=== PATIENT | male | born 1940 | race Caucasian/White ===

== ENCOUNTER → 2019-08-04 22:59 | Outpatient (CLI) | payer MEDICARE, MEDICAID, SELFPAY ==
[2019-08-04 23:48] LABS: Microscopic, Urine URINE MICROSCOPIC (MICROSCOPIC)
[2019-08-05 00:01] LABS: Appearance,Urine CLOUDY (Clear); Bilirubin,Urine Negative (Negative); Blood, Urine TRACE-I (Negative); Color,Urine YELLOW (Yellow); Glucose,Urine (UA) Negative (Negative); Ketones,Urine Negative (Negative); Leukocyte Esterase,Urine 2+ (Negative); Nitrate,Urine POSITIVE (Negative); Protein,Urine TRACE (Negative); Specific Gravity, Urine 1.025 (1.005-1.030); Urobilinogen,Urine 0.2 EU/dl (0.2)
[2019-08-05 00:09] LABS: Bacteria,Urine 4+ /lpf; WBC,Urine TNTC #/hpf (0-3)
== END ==
PROVIDERS: PCP Emergency Medicine; Visit Provider Emergency Medicine
DX: R30.0 Dysuria (principal); N39.0 Urinary tract infection, site not specified
CPT/HCPCS: 81001; 87086; 87088; 87186

== ENCOUNTER → 2019-08-28 12:26 | Outpatient (CLI) | payer MEDICARE, MEDICAID, SELFPAY ==
--- NOTE | 2019-08-28 12:30 | FL_ITS ---
PROCEDURE: FL BARIUM SWALLOW MODIFIED CLINICAL INDICATION: ASPIRATION COMPARISON: No exams were available for comparison TECHNIQUE: Patient administered varying consistencies of barium contrast, while viewed in lateral position under real-time fluoroscopy with cine recording. FLUOROSCOPY TIME:3 minutes and 14 seconds The study was performed in conjunction with speech pathologist. Please see that report & recommendations. FINDINGS: Patient was given varying consistencies of barium. There was delay in initiation of the swallowing mechanism with mild stasis within the piriform sinuses. There was mild distended penetration but no corina tracheal aspiration.. IMPRESSION: Mild vestibular penetration with delay and stasis Please see speech pathologist report and recommendations. Dictated by: Ori Osborne MD 08/29/2019 10:51 Electronically signed by Ori Osborne MD in [place] 08/29/2019 10:51
--- NOTE | 2019-08-28 15:15 | HMH.SLMBS2 ---
Speech & Language Evaluation Speech/Language Mod Barium Swallow Start: 08/28/19 13:58 Freq: once Status: Complete Protocol: Document 08/28/19 13:58 CMAY (Rec: 08/28/19 14:52 CMAY [id number]) [facility] [place] Diet Dietary Recommendations Pureed,[place] Liquids Comment NTL via straw Treatment/Strategies Strategy/Precaution Recommend Sitting Upright (90 deg), Liquids from Straw Mod Barium Swallow Impressions Summary and Impressions Oral Phase Impression Moderate Impairment Oral Phase Summary Patient demonstrated extended mastication time and munching during mechanical soft trial. Patient also exhibited poor bolus formation and propulsion . No lingual residue was observed. Pharyngeal Phase Impression Moderate Impairment Pharyngeal Phase Summary Patient demonstarted weak tongue base strength evidenced by bolus spilling over tongue base seconds before swallow during mech soft trial. Patient also exhibited significant penetration into the laryngeal vestibule during mechanical soft trial. Patient also demonstrated a moderate amount of resiude in the valleculae following trials of NTL, HTL, pudding, and puree that did not clear with NTL washes, hard swallow, or verbal cues to cough on command. However, NTL via straw resulted in less residue than other trials. Patient rocked back and forth throughout study which impeded views at times and likely impacted swallow ability. Speech/Language MBS Assessment/Goals/Plan Assessment Date of Evaluation: 08/28/19 Evaluation Type Initial Certification Assessment/Problems Dysphagia Does Patient Qualify for Service No Qualify/Failure Comment Patient will return to [facility] where ST will follow-up and determine appropriateness of therapy. Recommendations PHYSICIAN CERTIFICATION: The specified therapy services are required, authorized, and reviewed every 30 days. Diet Maikol
== END ==
PROVIDERS: PCP Emergency Medicine; Visit Provider Emergency Medicine
DX: R13.10 Dysphagia, unspecified (principal); R09.89 Other specified symptoms and signs involving the circulatory and respiratory systems; R05 Cough
CPT/HCPCS: 70371; 92611

== ENCOUNTER → 2019-12-01 11:25 | Outpatient (CLI) | payer MEDICARE, MEDICAID, SELFPAY ==
[2019-12-01 11:35] LABS: Microscopic, Urine URINE MICROSCOPIC (MICROSCOPIC)
[2019-12-01 12:05] LABS: Appearance,Urine CLEAR (Clear); Bilirubin,Urine Negative (Negative); Blood, Urine 1+ (Negative); Color,Urine YELLOW (Yellow); Glucose,Urine (UA) Negative (Negative); Ketones,Urine TRACE (Negative); Leukocyte Esterase,Urine 3+ (Negative); Nitrate,Urine POSITIVE (Negative); Protein,Urine TRACE (Negative); Specific Gravity, Urine 1.025 (1.005-1.030); Urobilinogen,Urine 0.2 EU/dl (0.2)
[2019-12-01 12:36] LABS: Bacteria,Urine Trace /lpf; Squamous Epithelial Cell,Urine Occasional #/hpf (0-5); WBC,Urine TNTC #/hpf (0-3)
== END ==
PROVIDERS: Visit Provider Emergency Medicine
DX: R30.0 Dysuria (principal); R10.9 Unspecified abdominal pain
CPT/HCPCS: 81001; 87086; 87088; 87186

== ENCOUNTER → 2019-12-24 13:29 | Outpatient (CLI) | payer MEDICARE, MEDICAID, SELFPAY ==
[2019-12-24 13:39] LABS: Microscopic, Urine URINE MICROSCOPIC (MICROSCOPIC)
[2019-12-24 14:14] LABS: Appearance,Urine CLEAR (Clear); Bilirubin,Urine Negative (Negative); Blood, Urine Negative (Negative); Color,Urine YELLOW (Yellow); Glucose,Urine (UA) Negative (Negative); Ketones,Urine Negative (Negative); Leukocyte Esterase,Urine Negative (Negative); Nitrate,Urine Negative (Negative); Protein,Urine Negative (Negative); Specific Gravity, Urine 1.025 (1.005-1.030); Urobilinogen,Urine 0.2 EU/dl (0.2)
[2019-12-24 14:31] LABS: Bacteria,Urine Trace /lpf; Calcium Oxalate Crystals,Urine Trace /lpf; Squamous Epithelial Cell,Urine Occasional #/hpf (0-5)
== END ==
PROVIDERS: Visit Provider Emergency Medicine
DX: Z87.440 Personal history of urinary (tract) infections (principal); R82.90 Unspecified abnormal findings in urine
CPT/HCPCS: 81001; 87086

== ENCOUNTER → 2020-01-23 08:46 | Outpatient (CLI) | payer MEDICARE, MEDICAID, SELFPAY ==
--- NOTE | 2020-01-23 08:52 | XR_ITS ---
PROCEDURE: XR WRIST LT MIN 3V CLINICAL INDICATION: left wrist fracture Pain and swelling COMPARISON: No exams were available for comparison FINDINGS: Nondisplaced transverse fracture involves the distal radius at the metaphyseal diaphyseal junction. There is minimal impaction. There may be a faint linear component extending into the articular surface centrally. CT may confirm if clinically warranted. Distal ulna has an unremarkable appearance. IMPRESSION: Nondisplaced transverse distal radial fracture with minimal impaction and questionable longitudinal component extending to the articular surface Dictated by: Ori Osborne MD 01/23/2020 12:37 Electronically signed by Ori Osborne MD in [place] 01/23/2020 12:37
== END ==
PROVIDERS: PCP Emergency Medicine; Visit Provider Orthopaedic Surgery
DX: S62.102A Fracture of unspecified carpal bone, left wrist, initial encounter for closed fracture (principal)
CPT/HCPCS: 73110

== ENCOUNTER → 2020-01-30 13:53 | Outpatient (CLI) | payer MEDICARE, MEDICAID, SELFPAY ==
--- NOTE | 2020-01-30 14:00 | XR_ITS ---
PROCEDURE: XR WRIST LT MIN 3V CLINICAL INDICATION: left wrist fracture Follow-up fracture COMPARISON: XR WRIST LT MIN 3V from 01/23/2020 FINDINGS: A cast is in place. Mildly impacted distal radial fracture once again noted with mild dorsal displacement and angulation of the distal fracture fragment IMPRESSION: Good alignment status post cast placement for impacted fracture of the distal radius Dictated by: Ori Osborne MD 01/30/2020 14:30 Electronically signed by Ori Osborne MD in [place] 01/30/2020 14:30
== END ==
PROVIDERS: PCP Emergency Medicine; Visit Provider Orthopaedic Surgery
DX: S52.502A Unspecified fracture of the lower end of left radius, initial encounter for closed fracture (principal)
CPT/HCPCS: 73110

== ENCOUNTER → 2020-02-27 13:24 | Outpatient (CLI) | payer MEDICARE, MEDICAID, SELFPAY ==
--- NOTE | 2020-02-27 13:26 | XR_ITS ---
PROCEDURE: XR WRIST LT MIN 3V CLINICAL INDICATION: left wrist fracture, after cast removal Follow-up fracture/cast removal COMPARISON: XR WRIST LT MIN 3V from 01/23/2020 XR WRIST LT MIN 3V from 01/30/2020 FINDINGS: There is a healing comminuted fracture of the distal radius with mild dorsal angulation/impaction of the distal fracture fragment without displacement. There is developing callus formation. IMPRESSION: Healing distal radial fracture as described above Dictated by: Ori Osborne MD 02/27/2020 13:53 Electronically signed by Ori Osborne MD in [place] 02/27/2020 13:53
== END ==
PROVIDERS: PCP Emergency Medicine; Visit Provider Orthopaedic Surgery
DX: S52.502A Unspecified fracture of the lower end of left radius, initial encounter for closed fracture (principal)
CPT/HCPCS: 73110

== ENCOUNTER → 2020-09-09 02:20 | Outpatient (CLI) | payer MEDICARE, MEDICAID, SELFPAY ==
[2020-09-10 11:04] LABS: Covid-19 Nasal PCR Sendout P&C POSITIVE
== END ==
PROVIDERS: Visit Provider Emergency Medicine
DX: U07.1 COVID-19 (principal)
CPT/HCPCS: U0004

== ENCOUNTER → 2021-09-02 10:32 | Outpatient (CLI) | payer MEDICARE, MEDICAID, SELFPAY ==
--- NOTE | 2021-09-02 10:45 | XR_ITS ---
FINAL REPORT CLINICAL HISTORY: BLOATING,DIARRHEA FINDINGS: Chest: A single view of the chest demonstrates mild bibasilar atelectasis or scarring. Abdomen: Flat and upright views of the abdomen demonstrate a nonobstructive gas pattern. There is a moderate amount of retained stool. There is no free air. IMPRESSION: Mild bibasilar atelectasis or scarring. Moderate amount of retained stool. Reviewed, Interpreted and Dictated by Ganga Javed III, MD Transcribed by Aidee Lopez Authenticated by Ganga Javed III, MD on 09/02/2021 12:44:40 PM [facility]
--- NOTE | 2021-09-02 10:45 | FL_ITS ---
FINAL REPORT CLINICAL HISTORY: . bloating coughing while eating fluoro time 2.54 FINDINGS: MODIFIED BARIUM SWALLOW History: Dysphagia. FINDINGS: Fluoroscopy was provided for the speech pathologist to evaluate the swallowing mechanism. The patient was given several different consistencies of barium while the swallow was visualized fluoroscopically. The report of the speech pathologist should be consulted prior to making dietary decisions. FLUOROSCOPY TIME:2 minutes 54 seconds. 15 cine runs were obtained. IMPRESSION: Modified barium swallow under fluoroscopic guidance. Please see the report of the speech pathologist for more detail. Films reviewed , interpreted and dictated by Dr. Dr. Javed. Transcribed by Blane Johnston PA-C. Reviewed, Interpreted and Dictated by Ganga Javed III, MD Transcribed by ASHLEIGH Larry Authenticated by Ganga Javed III, MD on 09/04/2021 08:27:[address] [facility]
--- NOTE | 2021-09-02 12:00 | HMH.SLMBS2 ---
Speech & Language Evaluation Speech/Language Mod Barium Swallow Start: 09/02/21 11:20 Freq: once Status: Complete Protocol: Document 09/02/21 11:20 MIHAELA (Rec: 09/02/21 11:59 MIHAELA [id number]) General Information General Current Food Consistancy Pureed,Pudding Liquids Dentition Edentulous Oxygen Status Room Air Facial Symmetry Patient Baseline Patient Orientation Person,Place Ability to Follow Directions Fair Communication Ability Moderate Impairment MBS Recommendations Diet Dietary Recommendations Ground Meats,Pureed,Honey Liquids Treatment/Strategies Strategy/Precaution Recommend Sitting Upright (90 deg),Small Bites and Sips Mod Barium Swallow Impressions Summary and Impressions Oral Phase Impression Moderate Impairment Pharyngeal Phase Impression Severe Impairment Speech/Language MBS Assessment/Goals/Plan Assessment Date of Evaluation: 09/02/21 Evaluation Type Initial Certification Assessment/Problems History of dysphagia, currently on pudding thick liquids and puree diet. Does Patient Qualify for Service No Qualify/Failure Comment [facility]. Recommendations PHYSICIAN CERTIFICATION: The specified therapy services are required, authorized, and reviewed every 30 days. Diet Recommendations pureed/ground diet. Liquid Type Recommendations Honey Consistency SL Swallow Guidelines Assist w/all meals,High aspiration risk,Crush meds as allowed*,Eat at slow rate Crush Meds Crush all meds Dysphagia Swallow Precautions/Strategies Sitting Upright (90 deg),Small Bites and Sips Place Food on Either side of Mouth Plan Pt/Guardian verbally ack understanding Yes of dx/prognosis/goals Pt/Guardian verbally ack understanding Yes of/consent to tx prog G -code Required No Mod Barium Swallow Setup Exam Setup Radiologist Ganga Javed Level of Consciousness Awake,Alert,Disoriented Position (degrees) 90 Mod Barium Swallow-Lat View Textures Lateral View Food Presentation Thin Liquid via Cup,[place] Liquid via Spoon,[place] Liquid via Cup,Honey Liquid via Spoon,Honey Liquid via Cup, Pureed Food- Thin,Mech. Soft Food- Regular,Pudding Oral Phase Labial Closure No Impairment (WFL) Bolus Formation Pooling L/R Moderate Impairment Bolus Forma
== END ==
PROVIDERS: PCP Emergency Medicine; Visit Provider Emergency Medicine
DX: R14.0 Abdominal distension (gaseous) (principal); R41.9 Unspecified symptoms and signs involving cognitive functions and awareness
CPT/HCPCS: 70371; 74021; 92611

== ENCOUNTER → 2022-03-15 11:33 | Outpatient (CLI) | payer MEDICARE, MEDICAID, SELFPAY ==
--- NOTE | 2022-03-15 11:38 | XR_ITS ---
FINAL REPORT CLINICAL HISTORY: vomiting blood/cough x2 weeks COMPARISON: 09/02/2021 FINDINGS: PA and lateral views of the chest were obtained. The cardiac silhouette is within normal limits. Right paratracheal fullness is unchanged and likely vascular. There is evidence of granulomatous disease with underlying emphysema. The lungs are otherwise clear. There is no pleural effusion or pneumothorax. No acute osseous abnormality is identified. IMPRESSION: No radiographic evidence of acute cardiac or pulmonary disease. Reviewed, Interpreted and Dictated by Ariela Fairchild MD Transcribed by Walker Feliz Authenticated and [facility]
== END ==
PROVIDERS: PCP Emergency Medicine; Visit Provider Otolaryngology
DX: K92.0 Hematemesis (principal); R05.3 Chronic cough
CPT/HCPCS: 71046

== ENCOUNTER → 2022-03-22 09:04 | Outpatient (CLI) | payer MEDICARE, MEDICAID, SELFPAY | PROVIDERS: PCP Emergency Medicine; Visit Provider Otolaryngology | DX: K92.0 Hematemesis (principal); R05.3 Chronic cough | CPT/HCPCS: 94010 ==

== ENCOUNTER 2022-05-02 21:09 | Emergency (ER) | payer MEDICARE, MEDICAID, SELFPAY ==
[2022-05-02 21:17] VITALS: BP 123/56; PULSE 80; RESP 16; TEMP 37.3; O2SAT 97; BMI 23.7
--- NOTE | 2022-05-02 21:52 | HMH.EDSKAF ---
Discharge Plan Disposition Patient Disposition: Home, Self-Care Chief Complaint: Skin/Abscess/Foreign Body Prescriptions Prescriptions: No Action risperidone 0.5 mg tablet 0.5 mg PO DAILY divalproex 500 mg tablet extended release 24 hr 500 mg PO DAILY acetaminophen 500 mg capsule 500 mg capsule 500 mg PO Q4H PRN albuterol sulfate 90 mcg/actuation aerosol powdr breath activated 2 inh INHALATION Q6H PRN guaifenesin [Robafen] 100 mg/5 mL liquid 200 mg PO Q4H PRN aspirin [Adult Aspirin Regimen] 81 mg tablet,delayed release (DR/EC) 81 mg PO DAILY Ingrezza 80 mg capsule 80 mg PO DAILY Qty: 30 2RF lorazepam 0.5 mg tablet 0.5 mg PO QHS Qty: 30 5RF Referrals Follow up/Referrals: Chago Rodriguez MD [Primary Care Provider] - See instructions Clinical Impressions Clinical Impression: Lesion of mouth Instructions Patient Instructions: DI for Skin Lesion Removal Discharge ED Provider: Chago Rodriguez Skin/Abscess/FB HPI General Chief complaint: Skin/Abscess/Foreign Body Stated complaint: Bleeding from mouth Time Seen by Provider: 05/02/22 21:52 Mode of Arrival: EMS Source of Information: Patient, EMS and Medical Record Limitations: No Limitations Description of Symptoms (Recalled from ER Triage Doc. by RN): Per ems and custodial report (report given from fredy Saldana), pt was eating dinner tonight when he began to spit out blood. Per EMS, they were told that there was a spot on his mouth that looks like caviar by custodial staff. On patients inner right cheek, there is an area that is shaped like a small grape that is dangling. Pt is not currenlty bleeding but there is old dried blood on his villavicencio. Pt has no teeth and states I gum my food but I didn't gum my jaw . History of Present Illness HPI narrative: bleeding from rt oral lesion - uncertain how long lesion present - no other c/o MD complaint: lesion Onset (ago): unknown Tetanus up to date: unsure Location: face (oral rt inner jaw ) Severity: moderate Associated symptoms: denies other symptoms Treatments prior to arrival: none Related Data Home Medications Medication Instructions Recorded Confirmed acetaminophen 500 mg capsule 500 mg PO Q4H PRN 10/22/19 04/19/22 albuterol sulfate 90 mcg/actuation 2 inh inhalation Q6H PRN 10/22/19 04/19/22 breath activated powder inhaler aspirin 81 mg tablet,delayed 81 mg PO DAILY 10/22/19 04/19/22 release (Adult Aspirin Regimen) guaifenesin 100 mg/5 mL oral 200 mg PO Q4H PRN 10/22/19 04/19/22 liquid (Robafen) divalproex 500 mg tablet,extended 500 mg PO DAILY 03/15/22 04/19/22 release 24 hr risperidone 0.5 mg tablet 0.5 mg PO DAILY 03/15/22 04/19/22 Previous Rx's Medication Instructions Recorded valbenazine 80 mg capsule 80 mg PO DAILY #30 caps 10/22/19 (Ingrezza) lorazepam 0.5 mg tablet 0.5 mg PO QHS #30 tabs 04/09/22 Allergies Allergy/AdvReac Type Severity Reaction Status Date / Time No Known Allergies Allergy Verified 04/19/22 14:44 [facility] Medical History Chronic schizoaffective disorder COPD (chronic obstructive pulmonary disease) Metabolic encephalopathy Social History (Updated 04/19/22 @ 15:17 by Jewle Elder MD) Smoking Status: Never smoker alcohol intake: never current occupational status: retired Travel in the last 8 weeks: None housing: custodial ROS Obtained: Yes All systems reviewed & no additional complaints except as documented Constitutional Constitutional: Denies fever(s) Eyes Eyes: Denies loss of vision ENT Ears, Nose, Mouth, and Throat: Reports as per HPI, Denies odynophagia and Reports other (bleeding ) Cardiovascular Cardiovascular: Denies dyspnea Respiratory Respiratory: Denies dyspnea Gastrointestinal Gastrointestingal: Denies odynophagia Genitourinary Male Genitourinary: Denies hematuria Musculoskeletal Musculoskeletal: Denies arthra
[2022-05-02 22:12] VITALS: BP 120/52; PULSE 81; RESP 16; TEMP 36.6; O2SAT 99
== END 2022-05-02 22:31 | disposition home or self-care (01) ==
PROVIDERS: Emergency Provider Emergency Medicine; PCP Emergency Medicine
DX: K13.79 Other lesions of oral mucosa
CPT/HCPCS: 40810; 99283

== ENCOUNTER → 2022-05-03 14:05 | Outpatient (CLI) | payer MEDICARE, MEDICAID, SELFPAY ==
--- NOTE | 2022-05-03 14:05 | CT_ITS ---
FINAL REPORT TECHNIQUE: Axial images were obtained from the lung apex to the mid abdomen by computed tomography. Coronal reformatted images were obtained. This study was performed with techniques to keep radiation doses as low as reasonably achievable, (ALARA). Individualized dose reduction techniques using automated exposure control or adjustment of mA and/or kV according to the patient''s size were employed. CLINICAL HISTORY: Hemoptysis FINDINGS: CHEST CT WITHOUT CONTRAST There is no axillary adenopathy. There is no hilar or mediastinal adenopathy. Heart size is normal. There are severe coronary artery calcifications. There is no pericardial or pleural effusion. Limited images of the upper abdomen are unremarkable. On the lung window images there is mild pulmonary scarring. There is a 2 mm right upper lobe nodule seen on image 39 and a 5 mm lateral right middle lobe nodule seen on image 61. IMPRESSION: No acute process. Right pulmonary nodules as described. Reviewed, Interpreted and Dictated by Ganga Javed III, MD Transcribed by Aidee Lopez Authenticated and [facility]
== END ==
PROVIDERS: PCP Emergency Medicine; Visit Provider Internal Medicine Pulmonary Disease
DX: J44.9 Chronic obstructive pulmonary disease, unspecified (principal); R04.2 Hemoptysis
CPT/HCPCS: 71250

== ENCOUNTER 2022-07-02 19:26 | Emergency (ER) | payer MEDICARE, MEDICAID, SELFPAY ==
[2022-07-02 19:26] VITALS: BP 105/45; PULSE 59; RESP 18; TEMP 36.7; O2SAT 99; BMI 21.2
--- NOTE | 2022-07-02 19:49 | CT_ITS ---
PROCEDURE INFORMATION: Exam: CT Cervical Spine Without Contrast Exam date and time: 07/02/2022 9:10 PM Age: 82 years old Clinical indication: Injury or trauma; Fall TECHNIQUE: Imaging protocol: Computed tomography of the cervical spine without contrast. Radiation optimization: All CT scans at this facility use at least one of these dose optimization techniques: automated exposure control; mA and/or kV adjustment per patient size (includes targeted exams where dose is matched to clinical indication); or iterative reconstruction. COMPARISON: CT HEAD/BRAIN WO CON 07/02/2022 9:08 PM FINDINGS: Bones/joints: No evidence of acute fracture or malalignment. Multilevel degenerative changes resulting in varying degrees of spinal canal stenosis and neuroforaminal narrowing. No evidence of acute osseous abnormality in T1 and T2, which were not included on the concurrent thoracic spine CT. Lungs: No acute abnormality or suspicious mass lesion in the visualized lung apices. Soft tissues: Coarse soft tissue calcifications along the nuchal ligament, compatible with chronic sequelae of prior trauma. IMPRESSION: 1. No evidence of acute osseous abnormality in the cervical spine. 2. No evidence of acute osseous abnormality in T1 and T2, which were not included on the concurrent thoracic spine CT. 3. Multi-level degenerative changes.
--- NOTE | 2022-07-02 19:49 | CT_ITS ---
PROCEDURE INFORMATION: Exam: CT Lumbar Spine Without Contrast Exam date and time: 07/02/2022 9:15 PM Age: 82 years old Clinical indication: Injury or trauma; Fall TECHNIQUE: Imaging protocol: Computed tomography of the lumbar spine without contrast. Radiation optimization: All CT scans at this facility use at least one of these dose optimization techniques: automated exposure control; mA and/or kV adjustment per patient size (includes targeted exams where dose is matched to clinical indication); or iterative reconstruction. COMPARISON: CT THORACIC SPINE WO CON 07/02/2022 9:12 PM FINDINGS: Bones/joints: Standard lumbosacral anatomy with 5 [id number] vertebral bodies. No evidence of acute fracture or malalignment. Multilevel degenerative changes resulting in varying degrees of spinal canal stenosis and neuroforaminal narrowing. Soft tissues: Unremarkable. IMPRESSION: 1. No evidence of acute osseous abnormality in the lumbar spine. 2. Multi-level degenerative changes.
--- NOTE | 2022-07-02 19:49 | XR_ITS ---
PROCEDURE INFORMATION: Exam: XR Chest Exam date and time: 07/02/2022 8:23 PM Age: 82 years old Clinical indication: Injury or trauma; Fall; Blunt trauma (contusions or hematomas); Additional info: Fall hit back of head TECHNIQUE: Imaging protocol: Radiologic exam of the chest. Views: 4 or more views. COMPARISON: CT CHEST WO CON 05/03/2022 2:11 PM FINDINGS: Lungs: Pulmonary vascular congestion without overt pulmonary edema. No acute airspace consolidation. Pleural spaces: No large pleural effusion. No pneumothorax. Heart/Mediastinum: Cardiomediastinal silhouette is unchanged. Bones/joints: No evidence of acute osseous abnormality. IMPRESSION: 1. No acute findings. 2. Pulmonary vascular congestion without overt pulmonary edema.
--- NOTE | 2022-07-02 19:49 | XR_ITS ---
PROCEDURE INFORMATION: Exam: XR Pelvis Exam date and time: 07/02/2022 8:24 PM Age: 82 years old Clinical indication: Injury or trauma; Fall; Blunt trauma (contusions or hematomas); Bilateral; Pelvic region TECHNIQUE: Imaging protocol: Radiologic exam of the pelvis. Views: 1 or 2 view. COMPARISON: CR XR ACUTE ABDOMEN SERIES 09/02/2021 10:51 AM FINDINGS: Bones/joints: No acute fracture or malalignment. Pubic symphysis and bilateral sacroiliac joints are congruent. Soft tissues: Unremarkable. IMPRESSION: No evidence of acute osseous abnormality in the pelvis.
--- NOTE | 2022-07-02 19:49 | CT_ITS ---
PROCEDURE INFORMATION: Exam: CT Head Without Contrast Exam date and time: 07/02/2022 9:08 PM Age: 82 years old Clinical indication: Injury or trauma; Fall; Additional info: Fall hit back of head TECHNIQUE: Imaging protocol: Computed tomography of the head without contrast. Radiation optimization: All CT scans at this facility use at least one of these dose optimization techniques: automated exposure control; mA and/or kV adjustment per patient size (includes targeted exams where dose is matched to clinical indication); or iterative reconstruction. COMPARISON: RF FL BARIUM SWALLOW MODIFIED 09/02/2021 11:11 AM FINDINGS: Brain: There is no evidence of acute intracranial hemorrhage, extra-axial collection or locoregional mass effect. There are scattered hypodensities in the periventricular and subcortical white matter. The appearance is nonspecific, but most likely represents chronic small vessel disease in a person of this age Cerebral ventricles: The ventricles, sulci and cisterns are normal in size and configuration for patient's age. No hydrocephalus or midline structure shift Pituitary gland and sella: Sellar/parasellar structures, craniocervical junction and orbits are unremarkable Paranasal sinuses: See Mastoid air cells finding. Mastoid air cells: Scattered mucosal thickening in the left maxillary sinus Mastoid air cells. Visualized mastoid air cells are well aerated. Bones/joints: No calvarial fracture Soft tissues: Unremarkable. IMPRESSION: No acute intracranial abnormality. No calvarial fracture.
--- NOTE | 2022-07-02 19:49 | CT_ITS ---
PROCEDURE INFORMATION: Exam: CT Thoracic Spine Without Contrast Exam date and time: 07/02/2022 9:12 PM Age: 82 years old Clinical indication: Injury or trauma; Fall TECHNIQUE: Imaging protocol: Computed tomography of the thoracic spine without contrast. Radiation optimization: All CT scans at this facility use at least one of these dose optimization techniques: automated exposure control; mA and/or kV adjustment per patient size (includes targeted exams where dose is matched to clinical indication); or iterative reconstruction. COMPARISON: CT CERVICAL SPINE WO CON 07/02/2022 9:10 PM FINDINGS: Limitations: T1 and T2 vertebral bodies are not included in the images provided. Bones/joints: No acute fracture or malalignment. Multi-level bridging disc osteophytes in the spine, compatible with diffuse idiopathic skeletal hyperostosis (DISH). Soft tissues: Unremarkable. IMPRESSION: 1. No evidence of acute osseous abnormality in the thoracic spine, noting the T1 and T2 in included in the images provided. 2. Diffuse idiopathic skeletal hyperostosis (DISH).
[2022-07-02 20:01] VITALS: BP 98/49; PULSE 58; O2SAT 99
--- NOTE | 2022-07-02 21:08 | HMH.EDFALL ---
Discharge Plan Disposition Patient Disposition: er [facility] Chief Complaint: Fall Prescriptions Prescriptions: No Action bisacodyl 10 mg suppository 10 mg AL DAILY PRN risperidone 0.5 mg tablet 0.5 mg PO DAILY divalproex 500 mg tablet extended release 24 hr 500 mg PO DAILY acetaminophen 500 mg capsule 500 mg capsule 500 mg PO Q4H PRN albuterol sulfate 90 mcg/actuation aerosol powdr breath activated 2 inh INHALATION Q6H PRN guaifenesin [Robafen] 100 mg/5 mL liquid 200 mg PO Q4H PRN aspirin [Adult Aspirin Regimen] 81 mg tablet,delayed release (DR/EC) 81 mg PO DAILY Ingrezza 80 mg capsule 80 mg PO DAILY Qty: 30 2RF lorazepam 0.5 mg tablet 0.5 mg PO QHS Qty: 30 5RF Referrals Follow up/Referrals: Provider,Referral, MD [Primary Care Provider] - See instructions Clinical Impressions Clinical Impression: Fall, Acute cervical sprain, Sprain thoracic region, Lumbar contusion, Contusion of head, DISH (diffuse idiopathic skeletal hyperostosis) Instructions Patient Instructions: How to Prevent Falls Discharge ED Provider: Chago Rodriguez Fall HPI General Chief Complaint: Fall Stated Complaint: Fall Time Seen by Provider: 07/02/22 20:10 Mode of Arrival: EMS Source of Information: Patient, EMS and Medical Record Limitations: No Limitations Description of Symptoms (Recalled from ER Triage Doc. by RN): pt fell while having a smoke break. the pt stated that he attempted to sit down but there was no bench and he fell back and hit his head on a pole and fell on his back and bottom on the concrete. pt stated there is pain in the head on the back left no abrassion noted History of Present Illness HPI Narrative: fell at formerly [facility] w/o loc complaint: fall Onset (ago): hour(s) Fall from: standing Fall witnessed: yes, by bystander Place fall occurred: [facility] Loss of consciousness: none Prolonged down time: no Context: tripped/slipped Location of injury: head, neck and back Severity: moderate Associated symptoms (after fall): denies Related Data Home Medications Medication Instructions Recorded Confirmed acetaminophen 500 mg capsule 500 mg PO Q4H PRN 10/22/19 05/03/22 albuterol sulfate 90 mcg/actuation 2 inh inhalation Q6H PRN 10/22/19 05/03/22 breath activated powder inhaler aspirin 81 mg tablet,delayed 81 mg PO DAILY 10/22/19 05/03/22 release (Adult Aspirin Regimen) guaifenesin 100 mg/5 mL oral 200 mg PO Q4H PRN 10/22/19 05/03/22 liquid (Robafen) divalproex 500 mg tablet,extended 500 mg PO DAILY 03/15/22 05/03/22 release 24 hr risperidone 0.5 mg tablet 0.5 mg PO DAILY 03/15/22 05/03/22 bisacodyl 10 mg rectal suppository 10 mg AL DAILY PRN 05/03/22 05/03/22 Previous Rx's Medication Instructions Recorded valbenazine 80 mg capsule 80 mg PO DAILY #30 caps 10/22/19 (Ingrezza) lorazepam 0.5 mg tablet 0.5 mg PO QHS #30 tabs 04/09/22 Allergies Allergy/AdvReac Type Severity Reaction Status Date / Time No Known Allergies Allergy Verified 05/03/22 14:35 PFSH PFSH Medical History Chronic schizoaffective disorder COPD (chronic obstructive pulmonary disease) Hemoptysis, unspecified Lung nodule Metabolic encephalopathy Pulmonary emphysema Smoking greater than 30 pack years Social History (Updated 04/19/22 @ 15:17 by Jewel Elder MD) Smoking Status: Current every day smoker alcohol intake: never current occupational status: retired Travel in the last 8 weeks: None housing: [facility] ROS Obtained: Yes All systems reviewed & no additional complaints except as documented Physical Exam General General appearance: alert Head Head exam: normocephalic Eye Eye exam: Present PERRL and EOMI ENT ENT exam: Present mucous membranes moist Neck Neck exam: Present trachea midline Respiratory Respiratory exam: Present normal lung sounds bilaterally; Absent respiratory distress Cardiovascular Cardiovascular exam: Presen
--- NOTE | 2022-07-02 22:05 | PC.NURSE ---
Pt changed and repositioned in bed. Urinal and warm blanket provided. No other needs voiced at this time.
[2022-07-02 22:07] VITALS: BP 135/63; PULSE 54; O2SAT 100
--- NOTE | 2022-07-02 22:41 | PC.NURSE ---
Pt waiting for ambulance transport back to [facility]. No ambulance available at this time.
[2022-07-02 23:49] VITALS: BP 128/61; PULSE 55; RESP 16; TEMP 36.7; O2SAT 97
== END 2022-07-03 00:06 ==
PROVIDERS: Emergency Provider Emergency Medicine
DX: M48.10 Ankylosing hyperostosis [Forestier], site unspecified (principal); S00.93XA Contusion of unspecified part of head, initial encounter; S30.0XXA Contusion of lower back and pelvis, initial encounter; S23.9XXA Sprain of unspecified parts of thorax, initial encounter; S13.9XXA Sprain of joints and ligaments of unspecified parts of neck, initial encounter; W18.39XA Other fall on same level, initial encounter; Z79.82 Long term (current) use of aspirin; Z79.899 Other long term (current) drug therapy; J44.9 Chronic obstructive pulmonary disease, unspecified; F25.9 Schizoaffective disorder, unspecified; Z72.0 Tobacco use
CPT/HCPCS: 70450; 71045; 72125; 72128; 72131; 72170; 99285

== ENCOUNTER → 2022-11-02 13:01 | Outpatient (CLI) | payer MEDICARE, MEDICAID, SELFPAY ==
--- NOTE | 2022-11-02 13:04 | CT_ITS ---
FINAL REPORT TECHNIQUE: Axial images were obtained from the lung apex to the mid abdomen by computed tomography. Coronal reformatted images were obtained. This study was performed with techniques to keep radiation doses as low as reasonably achievable, (ALARA). Individualized dose reduction techniques using automated exposure control or adjustment of mA and/or kV according to the patient''s size were employed. CLINICAL HISTORY: RLL 6mm nodule COMPARISON: May 03, 2022 FINDINGS: There is no axillary adenopathy. There is no hilar or mediastinal adenopathy. Heart size is normal. There is severe left coronary artery calcification. There is no pericardial or pleural effusion. Limited images of the upper abdomen demonstrates a small nonobstructing left renal stone.. There is mild atelectasis or scarring in the lung bases. There is a 5 mm lateral right middle lobe nodule which is stable. There are several other small pulmonary nodules are stable. IMPRESSION: Stable pulmonary nodules. If indicated, additional follow-up in 12 months. Reviewed, Interpreted and Dictated by Ganga Javed III, MD Transcribed by Aidee Lopez Authenticated and [facility]
== END ==
PROVIDERS: PCP Emergency Medicine; Visit Provider Internal Medicine Pulmonary Disease
DX: R91.8 Other nonspecific abnormal finding of lung field (principal)
CPT/HCPCS: 71250

== ENCOUNTER → 2023-05-30 11:05 | Outpatient (CLI) | payer MEDICARE, MEDICAID, SELFPAY ==
--- NOTE | 2023-05-30 11:10 | FL_ITS ---
FINAL REPORT CLINICAL HISTORY: DYSPHAGIA ft 1:32 99.96 FINDINGS: MODIFIED BARIUM SWALLOW History: Dysphagia. FINDINGS: Fluoroscopy was provided for the speech pathologist to evaluate the swallowing mechanism. The patient was given several different consistencies of barium while the swallow was visualized fluoroscopically. The report of the speech pathologist should be consulted prior to making dietary decisions. Fluoro time: 1 minute 32 seconds DAP: 99.96 uGy.m2 Radiation exposure in Reference air Kerma: 6 mGy. IMPRESSION: Modified barium swallow under fluoroscopic guidance. Please see the report of the speech pathologist for more detail. Films reviewed , interpreted and dictated by Dr. Javed. Transcribed by Blane Johnston PA-C. Reviewed, Interpreted and Dictated by Ganga Javed III, MD Transcribed by ASHLEIGH Larry Authenticated and [facility]
--- NOTE | 2023-05-30 13:31 | HMH.SLMBS2 ---
Speech & Language Evaluation Speech/Language Mod Barium Swallow Start: 05/30/23 12:57 Freq: once Status: Complete Protocol: Document 05/30/23 12:57 CYRIL (Rec: 05/30/23 13:31 [id number] General Information General Current Food Consistancy Pureed,Thin Liquids Dentition Edentulous Oxygen Status Room Air Patient Orientation Person Ability to Follow Directions Fair Communication Ability Mild Impairment MBS Recommendations Diet Dietary Recommendations Pureed,Thin Liquids Comment thins with adaptive drinking aid Treatment/Strategies Strategy/Precaution Recommend Sitting Upright (90 deg), Double Swallow,No Straw,Small Bites and Sips,Alternate Liquids/Solids Mod Barium Swallow Impressions Summary and Impressions Oral Phase Impression Mild Impairment Oral Phase Summary Mr. Calvo exhibits a mild impairment in the oral prepatory and oral transit phases of the swallow 2' demonstration of prolonged mastication with scattered, rapid swallows noted across consistencies administered. There was also prolonged a/p transit noted with puree, pudding, and especially mechanical soft with barium pudding. He demonstrated fatigue and tongue pumping when attempting to manipulate mechanical soft solid and had difficulty with transition during the oral transit phase of the swallow with mechanical soft solids. Pharyngeal Phase Impression Moderate Impairment Pharyngeal Phase Summary Moderate pharyngeal impairment observed. Mr. Calvo exhibited no aspiration throughout the study. With pudding and mechanical soft consistencies administered corina residue was noted in the vallecular space that was able to be cleared to trace amounts of vallecular residue when prompted to complete a secondary swallow; remaining
== END ==
PROVIDERS: PCP Emergency Medicine; Visit Provider Emergency Medicine
DX: R13.10 Dysphagia, unspecified (principal)
CPT/HCPCS: 70371; 92611

== ENCOUNTER 2023-11-03 08:42 | Outpatient (CLI) | payer MEDICARE, MEDICAID, SELFPAY ==
--- NOTE | 2023-11-03 09:30 | PC.NURSE ---
PT UNABLE TO DO PFT AT THIS TIME. UNABLE TO DO A LOOP AFTER MULTIPLE ATTEMPTS
== END 2023-11-03 23:59 ==
LOC: RT 08:43
PROVIDERS: PCP Internal Medicine; Visit Provider Internal Medicine Pulmonary Disease
DX: R06.02 Shortness of breath (principal)

== ENCOUNTER 2024-02-02 11:14 | Outpatient (CLI) | payer MEDICARE, MEDICAID, SELFPAY ==
--- NOTE | 2024-02-02 11:24 | ECG_ITS ---
APPROVED REPORT Exam: Resting ECG HR:66 bpm ECG Measurements Heart Rate 66 AXES TN 189 P 58 QRSd 83 QRS 47 QT 364 T 44 QTc 378 Conclusion SINUS RHYTHM NORMAL ECG UNCONFIRMED REPORT Electronically signed by : Oseas Lennon MD 02/03/2024 16:07:29
== END 2024-02-02 23:59 | disposition home or self-care (01) ==
LOC: RT 11:15
PROVIDERS: PCP Family Medicine; Visit Provider Family Medicine
DX: I49.9 Cardiac arrhythmia, unspecified (principal)
CPT/HCPCS: 93005

== ENCOUNTER 2024-08-03 13:29 | Outpatient (CLI) | payer MEDICARE, MEDICAID, SELFPAY ==
--- NOTE | 2024-08-03 13:30 | CT_ITS ---
FINAL REPORT TECHNIQUE: Axial imaging of the chest was obtained without contrast. Reformatted images were also obtained and reviewed. This study was performed with techniques to keep radiation doses as low as reasonably achievable (ALARA). Individualized dose reduction techniques using automated exposure control or adjustment of mA and/or kV according to the patient's size were employed. CLINICAL HISTORY: pulm nodules FINDINGS: There are severe left coronary artery calcifications. There is no axillary adenopathy. There is no hilar or mediastinal mass or adenopathy. Heart size is normal. There is no pericardial or pleural effusion. Limited images of the upper abdomen demonstrates a less than 3 mm nonobstructing right renal stone. There is bronchial wall thickening and mild pulmonary scarring. There is a stable, 5 mm lateral right middle lobe nodule seen on series 2 image 58. IMPRESSION: Severe left coronary artery calcifications. Stable 5 mm nodule in the right middle lobe. Reviewed, Interpreted and Dictated by Ganga Javed III, MD Transcribed by Grace Boyer Authenticated and [facility]
== END 2024-08-03 23:59 | disposition home or self-care (01) ==
LOC: RAD 13:30
PROVIDERS: PCP Family Medicine; Visit Provider Nurse Practitioner Family
DX: R91.1 Solitary pulmonary nodule (principal); J43.0 Unilateral pulmonary emphysema [MacLeod's syndrome]; J44.9 Chronic obstructive pulmonary disease, unspecified; F17.210 Nicotine dependence, cigarettes, uncomplicated
CPT/HCPCS: 71250

== ENCOUNTER 2025-04-24 08:19 | Outpatient (CLI) | payer MEDICARE, MEDICAID, SELFPAY ==
--- OUTSIDE RECORDS SUMMARY | 2025-04-24 08:35 | XMS_ITS | Clinical Summary ---
Author Organization [facility] Address [address] [place] [address] Phone Care Team Providers Care Hoop Bender Tank Name Role Phone Unavailable Primary Care Provider Unavailabl e Allergies No known active allergies Medications * This document contains information received from the source organization and may not represent a complete record from that organization. AUSTEDO 12 mg Oral Tablet TAKE 1 TABLET BY MOUTH TWICE A DAY 60 Tablet 5 05/12/2021 Active LORazepam (ATIVAN) 0.5 mg Oral Tablet Take 1 tab at HS for anxiety/sle ep 30 Tablet 3 05/25/2024 Active Active Problems No known active problems Social History Tobacco Use Types Packs/Day Years Used Date Smoking Tobacco: Every Day Smokeless Tobacco: Never Tobacco Cessation:Ready to Q uit: No; Counseling Given: No Alcohol Use Standard Drinks/Week Comments Not Currently 0 (1 standard drink = 0.6 oz pur e alcohol) Sex and Gender Information Value Date Recorded Sex Assigned at Not on file Legal Sex Male 12:56 PM EDT Gender Identity Not on file Sexual Orientation Not on file Obstetrics History Plan of Treatment Health Maintenance Due Date Last Done Comments Wellness Exam Medicare 1943 DTaP/TDaP/Td (1 - Tdap) 1957 Pneumococcal Vaccine 50+ (1 of 2 - PCV) 1957 Zoster (1 of 2) 1988 RSV or 60+ (1 - 1-d ose 75+ series) 2013 COVID-19 Vaccine ( - 2023-2 5 season) 2025 Influenza Vaccine (#1) 2025 Hepatitis B Vaccine Aged Out No longe r eligible based on patient's age to complete this topic Meningococcal B Vaccine Aged Out No l onger eligible based on patient's age to complete this topic Insurance MEDICARE PART B MEDICAID [place]
[2025-04-24 10:52] LABS: Hematocrit 42.4 % (42.0-52.0); Hemoglobin 14.1 g/dL (14.1-18.0); Immature Granulocytes % 0.2 %; Mean Corpuscular HGB Conc 33.3 g/dL (31.8-35.4); Mean Corpuscular Hemoglobin 32.1 pg (27.0-31.2); Mean Corpuscular Volume 96.6 fl (80-94); Nucleated Red Blood Cells % 0 %; Platelet Count 217 K/mm3 (142-424); Red Blood Count 4.39 M/mm3 (4.60-6.20); Red Cell Distribution Width-SD 44.5 fL; White Blood Count 8.1 K/mm3 (4.8-10.8)
[2025-04-24 11:05] LABS: Alanine Aminotransferase 11 U/L (12-78); Albumin Level 3.4 g/dl (3.5-5.0); Albumin/Globulin Ratio 1.3 (1.1-1.8); Alkaline Phosphatase 77 U/L (38-126); Anion Gap 11.5 mEq/L (5-15); Aspartate Amino Transferase 18 U/L (17-59); Bilirubin,Total 0.5 mg/dl (0.2-1.3); Blood Urea Nitrogen 8 mg/dl (9-20); Calcium 9.9 mg/dl (8.4-10.2); Carbon Dioxide 27 mmol/L (22.0-30.0); Chloride 103 mmol/L (98-107); Cholesterol 166 mg/dl (140-200); Creatinine,Serum 0.90 mg/dl (0.66-1.25); Estimated Glomerular Filt Rate 80 ml/min (>60); GFR (African American) 97 ML/MIN (>60); Globulin 2.6 g/dL (1.3-3.2); Glucose 65 mg/dl (74-100); HDL Cholesterol 34 mg/dl (40-60); Potassium 4.5 mmoL/L (3.5-5.1); Sodium 137 mmol/L (136-145); Total Protein,Serum 6.0 g/dl (6.3-8.2); Triglycerides 73 mg/dl (30-150)
[2025-04-24 11:21] LABS: Free T4 (Free Thyroxine) 1.22 ng/dl (0.78-2.19)
[2025-04-24 11:36] LABS: Thyroid Stimulating Hormone 2.00 uIU/mL (0.465-4.68)
[2025-04-24 13:54] LABS: Hemoglobin A1C 5.4 % (4.0-6.0)
[2025-04-24 17:24] LABS: Hepatitis C Ab Qual. W/ RFX NEGATIVE (Negative)
== END 2025-04-24 23:59 | disposition home or self-care (01) ==
PROVIDERS: PCP Nurse Practitioner Family; Visit Provider Nurse Practitioner Family
DX: K21.9 Gastro-esophageal reflux disease without esophagitis (principal); Z11.4 Encounter for screening for human immunodeficiency virus [HIV]; Z12.5 Encounter for screening for malignant neoplasm of prostate
CPT/HCPCS: 80053; 80061; 83036; 84439; 84443; 85025; 86803; 87389; G0103

== ENCOUNTER 2025-08-18 19:06 | Emergency (ER) | payer MEDICARE, MEDICAID, SELFPAY ==
[2025-08-18 19:10] VITALS: BP 146/71; PULSE 76; RESP 20; TEMP 36.9; O2SAT 98; BMI 21.4
--- OUTSIDE RECORDS SUMMARY | 2025-08-18 19:20 | XMS_ITS ---
Author Organization Unknown ENCOUNTERS Encounter Performer Location Date Diagnosis Diagnosis Status Emergency [facility] [place] [address] [place] [address] [id number] Pre Admit [place] [address] [place] [address] [id number] Emergency [place] [address] [place] [address] [id number] X[facility]NF Emergency [place] [address] [place] [address] [id number] ANTHONY *Note: Encounters from your own facility or health system may be excluded. Allergies, Adverse Reactions, Alerts Allergen Type Severity Identification Date Medications Name Date Quantity Days Supplied GPI Number
--- OUTSIDE RECORDS SUMMARY | 2025-08-18 19:20 | XMS_ITS | Clinical Summary ---
Author Organization [facility] Address [address] [place] [address] Phone Care Team Providers Care Beater Head Name Role Phone Unavailable Primary Care Provider [...] on file Sexual Orientation Not on file Plan of Treatment Health Maintenance Due Date Last Done Comments Wellness Exam Medicare 1943 DTaP/TDaP/Td (1 - Tdap) 1957 Pneumococcal Vaccine 50+ (1 of 2 - PCV) 1957 Zoster (1 of 2) 1988 RSV or 60+ (1 - 1-d ose 75+ series) 2013 COVID-19 Vaccine ( - 2024-2 6 season) 2025 Influenza Vaccine (#1) 2025 Hepatitis B Vaccine Aged Out No longe r eligible based on patient's age to complete this topic Meningococcal B Vaccine Aged Out No l onger eligible based on patient's age to complete this topic Insurance MEDICARE PART B MEDICAID [place]
[2025-08-18 19:30] VITALS: BP 128/62; PULSE 70; O2SAT 98
--- NOTE | 2025-08-18 19:41 | XR_ITS ---
PROCEDURE INFORMATION: Exam: XR Left Ankle Exam date and time: 08/18/2025 7:47 PM Age: 85 years old Clinical indication: Injury or trauma; Fall; Blunt trauma; Ankle; Left; Additional info: Ankle pain after fall TECHNIQUE: Imaging protocol: Radiologic exam of the left ankle. Views: 3 or more views. COMPARISON: No relevant prior studies available. FINDINGS: Bones/joints: Calcaneus enthesophytes. Soft tissues: Moderate soft tissue swelling around the ankle. IMPRESSION: Moderate soft tissue swelling around the ankle. No acute fracture or dislocation.
[2025-08-18 20:00] VITALS: BP 131/67; PULSE 71; O2SAT 98
[2025-08-18 20:30] VITALS: BP 143/74; PULSE 70; O2SAT 97
--- NOTE | 2025-08-18 21:09 | ED_ITS ---
<Statement entered by Lopez Goldsmith MD - 08/18/25 21:59> Lopez Goldsmith MD: I was consulted by the STAN, and we discussed the complexity of the problems being addressed. I approve the treatment and management plan for this patient's care in the emergency department, thus performing a substantive portion of the medical decision making. Discharge Plan Disposition Patient Disposition: Home, Self-Care Condition: Good Prescriptions Prescriptions: No Action bisacodyl 10 mg suppository 10 mg DE DAILY PRN omeprazole 20 mg capsule,delayed release(DR/EC) 20 mg PO DAILY Austedo 12 mg tablet 12 mg PO BID albuterol sulfate 90 mcg/actuation HFA aerosol inhaler 2 puff inhalation Q6H PRN acetaminophen 500 mg capsule 500 mg PO Q4H PRN guaifenesin [Robafen] 100 mg/5 mL liquid 200 mg PO Q4H PRN aspirin [Adult Aspirin Regimen] 81 mg tablet,delayed release (DR/EC) 81 mg PO DAILY magnesium citrate Solution 300 ml PO WEEKLY PRN (Reason: constipation) sennosides-docusate sodium [Senexon-S] 8.6-50 mg tablet 1 tab-cap PO AM sennosides-docusate sodium [Senexon-S] 8.6-50 mg tablet 2 tab-cap PO HS risperidone 0.5 mg tablet 0.5 mg PO QHS lorazepam 0.5 mg tablet 0.5 mg PO QHS Qty: 30 5RF Referrals Follow up/Referrals: Oseas Baca MD [Primary Care Provider, Family Practice] - See instructions Activity Restrictions/Add. Instructions Additional Instructions/Restrictions: You were seen for left ankle pain. Return here if symptoms worsen. Your xray did not show a fracture. Clinical Impressions Clinical Impression: Ankle sprain Instructions Patient Instructions: Ankle Sprain Print Language Print Language: Danish Discharge ED Provider: Lopez Goldsmith General Adult HPI General Chief complaint: Fall Stated complaint: fall Time Seen by Provider: 08/18/25 19:21 History of Present Illness HPI narrative: Patient presents with left ankle pain. He reports that he had a fall. 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 He reports that he did bump his chin on his walker. The fall was apparently witnessed by nursing staff at the facility he lives in. complaint: Ankle pain Onset (ago): minute(s) Location: left and lower extremity Radiation: non-radiation Severity: moderate Consistency: constant Relieving factors: none Exacerbating factors: none Associated symptoms: denies other symptoms Treatments prior to arrival: none Related Data Home Medications ?Medication ?Instructions ?Recorded ?Confirmed acetaminophen 500 mg capsule 500 mg PO Q4H PRN 0 08/06/25 aspirin 81 mg tablet,delayed 81 mg PO DAILY 10/22/19 1 10/07/24 release (Adult Aspirin Regimen) guaifenesin 100 mg/5 mL oral 200 mg PO Q4H PRN 0 08/06/25 liquid (Robafen) bisacodyl 10 mg rectal suppository 10 mg DE DAILY PRN 05/03/22 08/06/25 magnesium citrate 300 ml PO WEEKLY PRN constip ation 07/27/23 08/06/25 sennosides 8.6 mg-docusate sodium 1 tab-cap PO AM 02/1108/06/25 50 mg tablet (Senexon-S) sennosides 8.6 mg-docusate sodium 2 tab-cap PO HS 02/1108/06/25 50 mg tablet (Senexon-S) omeprazole 20 mg capsule,delayed 20 mg PO DAILY 08/06/25 release albuterol sulfate 90 mcg/actuation 2 puff inhalation Q 6H PRN 01/08/25 08/06/25 aerosol inhaler risperidone 0.5 mg tablet 0.5 mg PO QHS 01/08/2508/06 deutetrabenazine 12 mg tablet 12 mg PO BID 05/29/25 (Austedo) Previous Rx's ?Medication ?Instructions ?Recorded lorazepam 0.5 mg tablet 0.5 mg PO QHS #30 tabs 08/17 Allergies Allergy/AdvReac Type Severity Reaction Status Date / Time No Known Allergies Allergy Verified 08/06/25 10:19 [facility] Disclaimer: The information contained in this section may have been updated after the patient was seen, as this information can be updated by other users. Medical History Chronic schizoaffective disorder Seasonal allergic rhinitis GERD (gastroesophageal reflux disease) Drug-induced movement disorder Pulmonary emphysema Fall Lung nodule Smoking greater than 30 pack years COPD (chronic obstructive pulmonary disease) Metabolic encephalopathy Surgical History No history of previous surgery Family History Other No significant family history Social History Smoking Status: Current every day smoker alcohol intake: never current occupational status: retired Travel in the last 8 weeks?: None housing: senior living Have you lived/traveled outside US in past 30 days?: No Contact w/someone who lives/traveled outside US past 30 days?: No Exposure to someone with infectious disease in past 14 days?: No Do you have a fever (greater than 100.4 F or 38 C)?: No Have you tested positive for COVID-19?: No Exposed to someone with COVID-19 in past 14 days?: No Do you have a sore throat?: No Do you have a cough?: No Do you have any weakness?: No Do you have any diarrhea?: No Are you experiencing any unusual bleeding?: No Do you have any muscle aches/pain?: No Do you have any abdominal pain?: No Are you experiencing loss of taste or smell?: No Other Medical History Have you received the Pneumonia Vaccine: Yes (06/14/19, 11/26/24, 07/24/25) ROS Obtained: Yes Systems reviewed as appropriate & no additional complaints except as documented Physical Exam General General appearance: alert and in no apparent distress Head Head exam: atraumatic and normocephalic Eye Eye exam: Present normal appearance and EOMI Chest Chest inspection: Present symmetric chest wall rise Respiratory Respiratory exam: Present normal lung sounds bilaterally; Absent wheezes or stridor Cardiovascular Cardiovascular exam: Present regular rate and normal rhythm; Absent systolic murmur Extremities Exam Extremities exam: Present other (Left club foot, mild medial tenderness, N/V intact ) Neurological Exam Neurological exam: Present alert and oriented X3 Psychiatric Psychiatric exam: Present normal affect and normal mood Skin Skin exam: Present warm, dry and intact Medical Decision Making Medical Records Screening: Per USPSTF and CDC recommendations, given the prevalence of disease in our region, it is our hospital?s policy to screen for HIV and viral Hepatitis for all patients aged 18 and over and those with ongoing risk factors. Anirudh Inquiry Pt receiving controlled substance: No Vital Signs: 08/18/25 19:10 08/18/25 19:30 08/18/25 20:00 Temperature 98.5 F Temperature Source Temporal Artery Scan Pulse Rate 70 71 Pulse Rate [Right] 76 Respiratory Rate 20 Blood Pressure 128/62 131/67 Blood Pressure [Right Arm] 146/71 H Blood Pressure Mean 84 78 Blood Pressure Mean [Right Arm] 96 02 Sat by Pulse Oximetry 98 98 98 08/18/25 20:30 Temperature Temperature Source Pulse Rate 70 Pulse Rate [Right] Respiratory Rate Blood Pressure 143/74 H Blood Pressure [Right Arm] Blood Pressure Mean 85 Blood Pressure Mean [Right Arm] 02 Sat by Pulse Oximetry 97 Orders (Tests/Meds): ORDERS Category Date Time Status Ankle XR - Left minimum 3 Views [XR ankle LT min 3V] Exams 08/18/25 19:41 Completed Stat Medical Decision Narrative: In summary patient is a 85-year-old male who presents the emergency department for evaluation of left ankle pain. Patient is hemodynamically stable upon arrival, afebrile. Mild edema and tenderness to the left medial ankle as well as clubfoot on physical exam. Differential diagnosis includes fracture, contusion, sprain. Initial workup will be conducted with x-ray. Imaging shows soft tissue swelling only. Upon repeat evaluation patient reports he has only mild pain. Given this patient is appropriate for discharge home back to the SNF.. Critical Care Critical Care Time Critical Care Time: No
--- NOTE | 2025-08-18 21:25 | PC.NURSE ---
report called to Maria Eugenia Oakley
[2025-08-18 21:28] VITALS: BP 146/71; PULSE 73; RESP 20; TEMP 36.9; O2SAT 98
== END 2025-08-18 21:55 ==
PROVIDERS: Emergency Provider Student in an Organized Health Care Education/Training Program; PCP Family Medicine
DX: S93.402A Sprain of unspecified ligament of left ankle, initial encounter (principal); W19.XXXA Unspecified fall, initial encounter
CPT/HCPCS: 73610; 99283; 99284